=== PATIENT | female | born 1965 | race Caucasian/White ===

== ENCOUNTER 2023-10-15 16:20 | Outpatient (REF) | payer OTHER, SELFPAY ==
[2023-10-15 16:40] LABS: Ammonia 213 umol/L (11-32)
== END 2023-10-15 16:21 | disposition home or self-care (01) ==
LOC: LAB 16:20
PROVIDERS: PCP Family Medicine; Visit Provider Family Medicine
DX: K76.82 Hepatic encephalopathy (principal)
CPT/HCPCS: 36415; 82140

== ENCOUNTER 2023-10-15 21:44 | Inpatient (IN) | payer OTHER, SELFPAY ==
[2023-10-15 21:49] VITALS: BP 110/0; PULSE 106; PULSE 109; TEMP 35.6; BMI 26.6
--- NOTE | 2023-10-15 21:49 | ECG_ITS ---
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
--- NOTE | 2023-10-15 22:04 | ED_ITS ---
HPI - Altered Mental Status General Chief Complaint: Altered Mental Status Stated Complaint: UNRESPONSIVE Time Seen by Provider: 10/15/23 21:48 History of Present Illness HPI narrative: alcoholic cirrhosis and hepatic encephalopathy with elevated ammonia level. Discharged from [facility] last week and admitted to group home. Per she was receiving 40gm lactulose tid at hospital. States dose was decreased to 12gm bid at home. Patient lethargic all day per group home personnel and unresponsive tonight. History of Hypotension that is treated with midodrine. Squad found BP 80 systolic patient was on liver transplant list but reportedly not able to remain compliant and not drink. She is jaundiced. She arrives in no resp distress and responsive to painful stimuli DNRCCA no intubation per her Related Data Home Medications ?Medication ?Instructions ?Recorded ?Confirmed folic acid 1 mg tablet 1 mg PO DAILY 10/15/23 10/15/23 lactulose 10 gram/15 mL oral 30 g PO BID 10/15/23 10/15/23 solution (Constulose) midodrine 10 mg tablet 10 mg PO TID 10/15/23 10/15/23 multivitamin 1 tab PO DAILY 10/15/23 10/15/23 pantoprazole 40 mg tablet,delayed 40 mg PO DAILY 10/15/23 10/16/23 release rifaximin 550 mg tablet (Xifaxan) 550 mg PO BID 10/15/23 10/15/23 sodium bicarbonate 650 mg tablet 1,300 mg PO TID 10/15/23 10/16/23 Allergies Allergy/AdvReac Type Severity Reaction Status Date / Time tizanidine [From Zanaflex] Allergy Unknown Verified 10/15/23 22:41 Review of Systems ROS Status of ROS unobtainable due to mental status [facility] Medical History (Updated 10/16/23 @ 19:31 by Mihir Hall MD) Low platelet count ?D69.6 - Thrombocytopenia, unspecified (ICD-10) DNI (do not intubate) ?Z78.9 - Other specified health status (ICD-10) Pancreatitis ?K85.90 - Acute pancreatitis without necrosis or infection, unspecified (ICD- 10) Former cigarette smoker ?Z87.891 - Personal history of nicotine dependence (ICD-10) Alcohol abuse ?F10.10 - Alcohol abuse, uncomplicated (ICD-10) Atypical ductal hyperplasia of right breast ?N60.91 - Unspecified benign mammary dysplasia of right breast (ICD-10) Thrombocytopenia ?D69.6 - Thrombocytopenia, unspecified (ICD-10) Jaundice ?R17 - Unspecified jaundice (ICD-10) Hyponatremia ?E87.1 - Hypo-osmolality and hyponatremia (ICD-10) Hypotension ?I95.9 - Hypotension, unspecified (ICD-10) Hepatic fibrosis ?K74.00 - Hepatic fibrosis, unspecified (ICD-10) Lumbar pain ?M54.50 - Low back pain, unspecified (ICD-10) Cervical cancer ?C53.9 - Malignant neoplasm of cervix uteri, unspecified (ICD-10) Cirrhosis of liver with ascites ?K74.60 - Unspecified cirrhosis of liver (ICD-10) ?R18.8 - Other ascites (ICD-10) GERD (gastroesophageal reflux disease) ?K21.9 - Gastro-esophageal reflux disease without esophagitis (ICD-10) Hepatic encephalopathy ?K76.82 - Hepatic encephalopathy (ICD-10) Surgical History History of tonsillectomy ?Z90.89 - Acquired absence of other organs (ICD-10) History of hysterectomy ?Z90.710 - Acquired absence of both cervix and uterus (ICD-10) History of adenoidectomy ?Z90.89 - Acquired absence of other organs (ICD-10) Exam Constitutional Vital Signs, click to edit/add: Last Vital Signs Temp 97.8 F 10/16/23 11:33 Pulse 112 H 10/16/23 19:21 Resp 20 10/16/23 19:21 BP 111/72 10/16/23 19:21 Pulse Ox 100 10/16/23 19:21 O2 Del Method Room Air 10/16/23 19:21 Common normals: no apparent distress Other: deep jaundice color. responsive to painful stimuli HENMT Common normals: normocephalic and head/scalp atraumatic Eye Common normals: PERRL Visual velez: other (scleral icterus) Respiratory Common normals: normal respiratory effort, no retractions, no use of accessory muscles and clear to auscultation bilaterally Cardio Common normals: regular rate, regular rhythm and S1 normal heart sound GI Other: distended Extremity Common normals: normal to inspection Neuro Other: responsive to pain Course Vital Signs Vital signs: Vital Signs Temperature 96.1 F L 10/15/23 21:49 Pulse Rate 109 H 10/15/23 21:49 Respiratory Rate 17 10/15/23 21:49 Blood Pressure 110/0 L 10/15/23 21:49 Oxygen Delivery Method Room Air 10/15/23 21:49 Temperature 97.8 F 10/16/23 11:33 Pulse Rate 112 H 10/16/23 19:21 Respiratory Rate 20 10/16/23 19:21 Blood Pressure 111/72 10/16/23 19:21 Pulse Oximetry 100 10/16/23 19:21 Oxygen Delivery Method Room Air 10/16/23 19:21 MDM - Altered Mental Status MDM Narrative Medical decision making narrative: patient with history of hepatic encephalopathy and alcohol cirrhosis/ascites. Per her she was receiving 40gm lactulose at the hospital tid and received less at the group home. she is also on Xifaxin and takes midodrine for hypotension. states she was on liver transplant list but she was non compliant and continued to drink. she is now DNRCCA. no intubation. She arrived responsive to painful stimuli. Her BP improved with IV fluids. UA noninfected and cxray clear. neg troponin and no acute EKG finding. ammonia level is elevated but decreased from what is was earlier today. discussed plan to admit with hospitalist to treat her hyperammonemia with lactulose rectally as she is not able to take it PO. clinically at this point she does appear stable. Labs also reveal Hypothyroidism that is new and has not been treated Lab Data Labs: Lab Results 10/15/23 10/15/23 Range/Units 22:06 22:13 WBC 10.3 (4.0-11.0) 10^3/uL RBC 2.77 L (4.20-5.40) 10^6/uL Hgb 9.0 L (12.0-16.0) g/dL Hct 27.3 L (36.0-48.0) % MCV 98.6 (81.0-99.0) fL MCH 32.5 (26.7-34.0) pg MCHC 33.0 (29.9-35.2) g/dL RDW 18.0 H (11.0-15.0) % Plt Count 45 L (150-450) 10^3/uL MPV 13.0 (9.5-13.5) fL Neut % (Auto) 73.0 (43.0-75.0) % Lymph % (Auto) 9.6 L (20.5-60.0) % [place] % (Auto) 14.1 H (1.7-12.0) % Eos % (Auto) 1.5 (0.9-7.0) % Baso % (Auto) 0.3 (0.2-2.0) % Neut # (Auto) 7.6 H (1.4-6.5) 10^3/uL Lymph # (Auto) 1.0 L (1.2-3.8) 10^3/uL [place] # (Auto) 1.5 H (0.3-0.8) 10^3/uL Eos # (Auto) 0.2 (0.0-0.7) 10^3/uL Baso # (Auto) 0.0 (0.0-0.1) 10^3/uL Abs Immat Gran (auto) 0.15 H (0.00-0.03) 10^3/uL Imm/Tot Granulo (auto) 1.5 H (0.0-0.5) % PT 18.5 H (9.0-11.6) sec INR 1.86 Sodium 130 L (136-145) mmol/L Potassium 3.5 (3.5-5.1) mmol/L Chloride 103 (98-107) mmol/L Carbon Dioxide 15.4 L (21.0-32.0) mmol/L Anion Gap 15.1 BUN 19.0 H (7.0-18.0) mg/dL Creatinine 1.22 H (0.55-1.02) mg/dL Est GFR ( Amer) 55 L (>=60) Est GFR (Non-Af Amer) 45 L (>=60) BUN/Creatinine Ratio 15.6 Glucose 126 H (74-106) mg/dL Calcium 8.6 (8.5-10.1) mg/dL Total Bilirubin 12.6 H (0.2-1.0) mg/dL AST 62 H (15-37) U/L ALT 35 (14-59) U/L Alkaline Phosphatase 138 H (46-116) U/L Ammonia 163 H* (11-32) umol/L Troponin I High Sens 5.8 (4.0-51.3) pg/mL Total Protein 5.7 L (6.4-8.2) g/dL Albumin 1.9 L (3.4-5.0) g/dL Globulin 3.8 g/dL Albumin/Globulin Ratio 0.5 TSH 8.595 H (0.358-3.740) uIU/mL Free T4 1.33 (0.76-1.46) ng/dL Urine Color Dk. orange (YELLOW) Urine Clarity Clear (CLEAR) Urine pH 6.0 (5.0-9.0) Ur Specific [place] 1.015 (1.005-1.025) Urine Protein Negative (NEG/TRACE) mg/dL Urine Glucose (UA) Negative (NEGATIVE) mg/dL Urine Ketones Negative (NEGATIVE) mg/dL Urine Occult Blood Negative (NEGATIVE) Urine Nitrite Negative (NEGATIVE) Urine Bilirubin Large A (NEGATIVE) Urine Urobilinogen 0.2 (0.2-1.0) EU/dL Ur Leukocyte Esterase Negative (NEGATIVE) Critical Care Time Critical Care Time Total Critical Care Time: 45 Discharge Plan Discharge Chief Complaint: Altered Mental Status Clinical Impression: Altered mental status, Encephalopathy, hepatic, Hypothyroidism Patient Disposition: Admitted As Inpatient Condition: Serious Discharge Date/Time: 10/16/23 00:18
[2023-10-15 22:22] LABS: Basophils Percent Auto 0.3 % (0.2-2.0); Eosinophils Absolute Auto 0.2 10^3/uL (0.0-0.7); Eosinophils Percent Auto 1.5 % (0.9-7.0); Hematocrit 27.3 % (36.0-48.0); Immature Granulocytes Abs Auto 0.15 10^3/uL (0.00-0.03); Immature Granulocytes Pct Auto 1.5 % (0.0-0.5); Lymphocytes Percent Auto 9.6 % (20.5-60.0); Mean Corpuscular Hemoglobin 32.5 pg (26.7-34.0); Mean Corpuscular Volume 98.6 fL (81.0-99.0); Monocytes Absolute Auto 1.5 10^3/uL (0.3-0.8); Monocytes Percent Auto 14.1 % (1.7-12.0); Neutrophils Absolute Auto 7.6 10^3/uL (1.4-6.5); Platelet Count 45 10^3/uL (150-450); Red Blood Count 2.77 10^6/uL (4.20-5.40); White Blood Count 10.3 10^3/uL (4.0-11.0)
--- NOTE | 2023-10-15 22:23 | PC.NURSE ---
Patient keeping her eyes shut and just yells out with painful stimuli, does not answer with verbal response.
[2023-10-15 22:24] LABS: Bilirubin Urine LARGE (NEGATIVE); Blood Urine NEGATIVE (NEGATIVE); Clarity Urine CLEAR (CLEAR); Color Urine DK. ORANGE (YELLOW); Glucose Urine UA NEGATIVE (NEGATIVE); Ketones Urine NEGATIVE (NEGATIVE); Leukocyte Esterase Urine NEGATIVE (NEGATIVE); Nitrite Urine NEGATIVE (NEGATIVE); Protein Urine NEGATIVE (NEG/TRACE); Specific Gravity Urine 1.015 (1.005-1.025); Urobilinogen Urine 0.2 EU/dL (0.2-1.0)
[2023-10-15 22:25] LABS: Urine Microscopic Indicated NO
[2023-10-15 22:39] LABS: Alanine Aminotransferase 35 U/L (14-59); Albumin Globulin Ratio 0.5; Albumin Level 1.9 g/dL (3.4-5.0); Alkaline Phosphatase 138 U/L (46-116); Anion Gap 15.1; Aspartate Amino Transferase 62 U/L (15-37); BUN Creatinine Ratio 15.6; Bilirubin Total 12.6 mg/dL (0.2-1.0); Calcium 8.6 mg/dL (8.5-10.1); Carbon Dioxide 15.4 mmol/L (21.0-32.0); Chloride 103 mmol/L (98-107); Estimated GFR (African America 55 (>=60); Estimated GFR (Non-African Ame 45 (>=60); Globulin 3.8 g/dL; Glucose 126 mg/dL (74-106); Potassium 3.5 mmol/L (3.5-5.1); Sodium 130 mmol/L (136-145); Total Protein 5.7 g/dL (6.4-8.2)
[2023-10-15 22:41] LABS: Ammonia 163 umol/L (11-32)
[2023-10-15 22:42] LABS: Free T4 1.33 ng/dL (0.76-1.46)
[2023-10-15 22:47] LABS: Thyroid Stimulating Hormone 8.595 uIU/mL (0.358-3.740)
--- NOTE | 2023-10-15 22:53 | XR_ITS ---
The [address] [address] Patient Name: CELENA NOEL MRN: [id number] date: 1965 Sex: F Assigned Patient Location: ER Current Patient Location: ER Accession/Order Number: [id number] Exam Date: 10/15/2023 22:59 Report Date: 10/15/2023 23:18 At the request of: JAIMEE SMITH Procedure: XR chest 1V XR chest 1V 10/15/2023 9:59 PM CDT: History: altered mental status Comparison: None. Technique: 1 view chest Findings: The cardiomediastinal silhouette is normal. The lungs are clear without infiltrate, effusion, or pneumothorax. The bones are intact. XR/XR chest 1V Impression: No acute cardiopulmonary process. Electronically authenticated by: VALENTINA OSBORN Date: 10/15/2023 23:18
[2023-10-15 22:56] VITALS: BP 114/76; PULSE 105; O2SAT 100
[2023-10-15 23:11] LABS: Troponin I High Sensitivity 5.8 pg/mL (4.0-51.3)
[2023-10-15] MEDS: MORPHINE SULFATE 2 MG/ML SYRINGE IV (23:13)
[2023-10-15 23:46] VITALS: BP 90/61; PULSE 103; TEMP 37.4; O2SAT 99
[2023-10-15 23:49] VITALS: PULSE 106
[2023-10-16] VITALS (18 sets, daily range): BP systolic 84–122; BP diastolic 50–82; PULSE 100–115; TEMP 36.4–37.4; O2SAT 96–100; BMI 22.8
[2023-10-16 00:03] LABS: INR 1.86; Prothrombin Time 18.5 sec (9.0-11.6)
[2023-10-16] MEDS: SODIUM CHLORIDE 0.9% IRRIG SOLUTION 1,000 ML BOTTLE 700 ML IRR ×2 (02:38→06:57)
[2023-10-16] MEDS: LACTULOSE 10 GM/15 ML (237ML) SOLUTION 200 GM PR ×2 (02:38→06:57)
[2023-10-16] MEDS: 0.9 % SODIUM CHLORIDE 1,000 ML 100 ML IV ×3 (02:40→18:15)
--- NOTE | 2023-10-16 04:17 | PC.NURSE ---
was placed in ER not by this RN.
[2023-10-16 06:49] LABS: Hematocrit 27.7 % (36.0-48.0); Hemoglobin 9.1 g/dL (12.0-16.0); Mean Corpuscular HGB Conc 32.9 g/dL (29.9-35.2); Mean Corpuscular Hemoglobin 32.5 pg (26.7-34.0); Mean Corpuscular Volume 98.9 fL (81.0-99.0); Mean Platelet Volume 12.9 fL (9.5-13.5); Platelet Count 46 10^3/uL (150-450); Red Cell Distribution Width 17.9 % (11.0-15.0); White Blood Count 10.7 10^3/uL (4.0-11.0)
[2023-10-16 07:18] LABS: Ammonia 61 umol/L (11-32)
[2023-10-16 07:45] LABS: Band Neutrophils Absolute 0.7 10^3/uL (0.0-0.3); Segmented Neut Absolute Manual 8.34 10^3/uL (1.4-6.5)
[2023-10-16 07:46] LABS: Anisocytosis 1+; Burr Cells 1+; Lymphocytes Absolute Manual 0.85 10^3/uL (1.20-3.80); Macrocytosis 1+; Monocytes Absolute Manual 0.64 10^3/uL (0.30-0.80); Ovalocytes 1+; Poikilocytosis 2+
[2023-10-16] MEDS: PANTOPRAZOLE SODIUM 40 MG VIAL IV (08:32)
--- NOTE | 2023-10-16 09:11 | PM.HP ---
HPI H&P: HPI History of Present Illness Chief complaint: UNRESPONSIVE Narrative: Patient is a 58 y.o female with history of alcoholic cirrhosis, hepatic encephalopathy, hypotension, GERD, who presented to the ER last night with altered mental status, Jaundice and abdominal pain. I spoke with the this morning and she was recently hospitalized in [facility] and [facility]. There was some confusion on lactulose dose since her hospital discharge and patient became less responsive, more lethargic and could not take oral medications. Patient has been seeing Dr. Haddad (GI) locally and also Dr. Porter at [facility]. She was previously on Liver transplant list. Patient's MELD score is 28. Her and family wishes are to continue with care as much as she can. I called and spoke with Dr. Haddad's college who suggested transfer to [facility]. I have initiated transfer to [facility]. Patient is able to take laculose suppositories only. She will not tell me her name and is not oriented. She does open her eyes in responds to voice. Lab findings: elevated bilirubin, ammonia, AST, low platelets, INR 1.89, elevated PTT Opioid HPI Opioid Management Most Recent Pain and Opioid Data: Last Pain Assessment 10/16/23 14:00 Last ORT Total Score 3 10/16/23 00:32 Last ORT Risk Category Low Risk 10/16/23 00:32 Review of Systems ROS Status of ROS unobtainable due to medical condition [facility] Medical History (Updated 10/16/23 @ 14:54 by Concepción Nick DO) Low platelet count ?D69.6 - Thrombocytopenia, unspecified (ICD-10) DNI (do not intubate) ?Z78.9 - Other specified health status (ICD-10) Pancreatitis ?K85.90 - Acute pancreatitis without necrosis or infection, unspecified (ICD-10) Former cigarette smoker ?Z87.891 - Personal history of nicotine dependence (ICD-10) Alcohol abuse ?F10.10 - Alcohol abuse, uncomplicated (ICD-10) Atypical ductal hyperplasia of right breast ?N60.91 - Unspecified benign mammary dysplasia of right breast (ICD-10) Thrombocytopenia ?D69.6 - Thrombocytopenia, unspecified (ICD-10) Jaundice ?R17 - Unspecified jaundice (ICD-10) Hyponatremia ?E87.1 - Hypo-osmolality and hyponatremia (ICD-10) Hypotension ?I95.9 - Hypotension, unspecified (ICD-10) Hepatic fibrosis ?K74.00 - Hepatic fibrosis, unspecified (ICD-10) Lumbar pain ?M54.50 - Low back pain, unspecified (ICD-10) Cervical cancer ?C53.9 - Malignant neoplasm of cervix uteri, unspecified (ICD-10) Cirrhosis of liver with ascites ?K74.60 - Unspecified cirrhosis of liver (ICD-10) ?R18.8 - Other ascites (ICD-10) GERD (gastroesophageal reflux disease) ?K21.9 - Gastro-esophageal reflux disease without esophagitis (ICD-10) Hepatic encephalopathy ?K76.82 - Hepatic encephalopathy (ICD-10) Surgical History History of tonsillectomy ?Z90.89 - Acquired absence of other organs (ICD-10) History of hysterectomy ?Z90.710 - Acquired absence of both cervix and uterus (ICD-10) History of adenoidectomy ?Z90.89 - Acquired absence of other organs (ICD-10) Meds Home Medications and Allergies Home Medications ?Medication ?Instructions ?Recorded ?Confirmed ?Type folic acid 1 mg tablet 1 mg PO DAILY 10/15/23 10/15/23 History lactulose 10 gram/15 mL oral 30 g PO BID 10/15/23 10/15/23 History solution (Constulose) midodrine 10 mg tablet 10 mg PO TID 10/15/23 10/15/23 History multivitamin 1 tab PO DAILY 10/15/23 10/15/23 History pantoprazole 40 mg tablet,delayed 40 mg PO DAILY 10/15/23 10/16/23 History release rifaximin 550 mg tablet (Xifaxan) 550 mg PO BID 10/15/23 10/15/23 History sodium bicarbonate 650 mg tablet 1,300 mg PO TID 10/15/23 10/16/23 History Allergies Allergy/AdvReac Type Severity Reaction Status Date / Time tizanidine [From Zanaflex] Allergy Unknown Verified 10/15/23 22:41 Exam Narrative Exam Narrative: General: Patient is alert but not oriented to person, place or time Skin: jaundice with scleral icterus Head: atraumatic, acephalic Eyes: scleral icterus Ears: normal gross auditory acuity Heart: Normal rate and rhythm, no murmurs/rubs/gallops Lungs: no audible wheezes, crackles and normal breath sounds all lung velez Abdomen: distension, diffuse pain, ascites Musculoskeletal: no swelling bilateral lower extremities Constitutional Vital Signs, click to edit/add: Last Vital Signs Temp 97.6 F 10/16/23 06:00 Pulse 102 H 10/16/23 08:00 Resp 18 10/16/23 06:00 BP 96/50 10/16/23 06:00 Pulse Ox 99 10/16/23 06:00 O2 Del Method Room Air 10/16/23 08:57 Results Labs Labs: Short CBC 10/15/23 10/16/23 Range/Units 22:06 06:35 WBC 10.3 10.7 (4.0-11.0) 10^3/uL Hgb 9.0 L 9.1 L (12.0-16.0) g/dL Hct 27.3 L 27.7 L (36.0-48.0) % Plt Count 45 L 46 L (150-450) 10^3/uL BMP 10/15/23 22:06 Sodium 130 L Potassium 3.5 Chloride 103 Carbon Dioxide 15.4 L BUN 19.0 H Creatinine 1.22 H Glucose 126 H Calcium 8.6 Liver Function 10/15/23 Range/Units 22:06 Total Bilirubin 12.6 H (0.2-1.0) mg/dL AST 62 H (15-37) U/L ALT 35 (14-59) U/L Alkaline Phosphatase 138 H (46-116) U/L Albumin 1.9 L (3.4-5.0) g/dL Urine 10/15/23 Range/Units 22:13 Urine Color Dk. orange (YELLOW) Urine Clarity Clear (CLEAR) Urine pH 6.0 (5.0-9.0) Ur Specific [place] 1.015 (1.005-1.025) Urine Protein Negative (NEG/TRACE) mg/dL Urine Glucose (UA) Negative (NEGATIVE) mg/dL Assessment and Plan Assessment and Plan (1) Encephalopathy, hepatic: (2) Cirrhosis of liver with ascites: Qualifiers: Hepatic cirrhosis type: alcoholic cirrhosis Qualified Code(s): K70.31 - Alcoholic cirrhosis of liver with ascites (3) Thrombocytopenia: (4) Jaundice: (5) Hyponatremia: (6) Hypotension: Qualifiers: Hypotension type: unspecified hypotension type Qualified Code(s): I95.9 - Hypotension, unspecified (7) Hepatorenal failure: Plan will continue with lactulose enemas as patient cannot take PO. Ammonia level was 216, down to 61, MELD score is 28. Patient needs a higher level of care than here, hepatology and possible liver transplant. I have initiated transfer to [facility], hopeful for bed assignment soon. I have discussed the severity of her disease and her mortality risk is high and patient's liver failure is decompensating fast. I have discussed transfer with as well as option for hospice and he wishes to preceed with transfer. Continue with pain control as needed, IVF. Patient is a DNRCCA Urinary Catheter Management Urinary Catheter Management 2-way Urethral: Cath placed during this visit: yes Urethral indwelling: Yes Reason for continuing: prolonged immobilization Insertion date: 10/15/23 Insertion time: 22:15
[2023-10-16] MEDS: MIDODRINE HCL 5 MG TABLET 10 MG PO (16:36)
[2023-10-16] MEDS: FENTANYL CITRATE/PF 100 MCG/2 ML VIAL 25 MCG IV (16:37)
--- NOTE | 2023-10-16 17:32 | PC.NURSE ---
pts notified of room number and transfer to [facility], pending transportation arrangements. pts stated he will notify pts daughter
--- NOTE | 2023-10-17 07:18 | PM.DS1 ---
DS: Providers Provider Date of admission: 10/16/23 00:21 Primary care physician: VALENTINA POWELL Admitting clinician: Vianney Arevalo Consults: 10/16/23 Consult to Dietitian Routine Reason for consultation: malnutrition score 10/16/23 00:00 Consult to Pharmacy Routine Consulting Provider: Vianney Arevalo Reason for consultation: Lactulose enema q4h until ammonia level within nl limits or taking PO Has provider been notified: No Attending physician on discharge: Concepción Nick DS: Diagnosis Discharge Diagnosis (1) Encephalopathy, hepatic: (2) Cirrhosis of liver with ascites: Qualifiers: Hepatic cirrhosis type: alcoholic cirrhosis Qualified Code(s): K70.31 - Alcoholic cirrhosis of liver with ascites (3) Thrombocytopenia: (4) Jaundice: (5) Hyponatremia: (6) Hypotension: Qualifiers: Hypotension type: unspecified hypotension type Qualified Code(s): I95.9 - Hypotension, unspecified (7) Hepatorenal failure: DS: Summary Hospital Course Hospital Course: Please see H&P for full details. Patient was accepted at [facility] and was transferred there last night for higher level of care, and to transplant center. The case was discussed with Accepting nurse at [facility]. I also discussed transfer with and patient at bedside and they agree with plan. Status at Discharge Overall status at discharge: patient is not back to baseline Time Spent with Patient Time attestation: Total time spent providing and/or coordinating discharge services: Time spent: greater than 30 minutes Exam Narrative Exam Narrative: discharge exam is unchanged from admitting H&P dated 10/16/23 Constitutional Vital Signs, click to edit/add: Last Vital Signs Temp 97.8 F 10/16/23 11:33 Pulse 114 H 10/16/23 20:07 Resp 20 10/16/23 19:21 BP 111/72 10/16/23 19:21 Pulse Ox 100 10/16/23 19:21 O2 Del Method Room Air 10/16/23 19:21 DS: Data Data Completed and Pending Labs on day of discharge: Labs from last 24 hours 10/16/23 06:35 WBC 10.7 RBC 2.80 L Hgb 9.1 L Hct 27.7 L MCV 98.9 MCH 32.5 MCHC 32.9 RDW 17.9 H Plt Count 46 L MPV 12.9 Seg Neuts % (Manual) 78.0 Band Neutrophils % 7.0 H Lymphocytes % (Manual) 8.0 L Monocytes % (Manual) 6.0 Eosinophils % (Manual) 1.0 Basophils % (Manual) 0.0 L Neutrophils # (Manual) 8.34 H Band Neutrophils # 0.7 H Lymphocytes # (Manual) 0.85 L Monocytes # (Manual) 0.64 Eosinophils # (Manual) 0.10 Basophils # (Manual) 0.00 Poikilocytosis 2+ Anisocytosis 1+ Macrocytosis 1+ Ovalocytes 1+ [place] Cells 1+ Ammonia 61 H* Discharge Plan Discharge Disposition: [facility] Condition: Serious Discharge Date/Time: 10/16/23 20:45 Discharge location: [facility]
== END 2023-10-16 20:45 | disposition short-term general hospital (02) | DRG 441 ==
LOC: ER 10-16 → MS 10-16 00:22
PROVIDERS: Registered Nurse; Admitting Provider Family Medicine; Emergency Provider Internal Medicine; PCP Internal Medicine; Visit Provider Family Medicine
DX: K76.82 Hepatic encephalopathy (principal); K76.7 Hepatorenal syndrome; E87.1 Hypo-osmolality and hyponatremia; K70.31 Alcoholic cirrhosis of liver with ascites; D69.6 Thrombocytopenia, unspecified; E03.9 Hypothyroidism, unspecified; I95.9 Hypotension, unspecified; Z66 Do not resuscitate; K21.9 Gastro-esophageal reflux disease without esophagitis; Z79.899 Other long term (current) drug therapy; Z88.8 Allergy status to other drugs, medicaments and biological substances; Z87.891 Personal history of nicotine dependence; Z85.41 Personal history of malignant neoplasm of cervix uteri
CPT/HCPCS: 36415; 51702; 71045; 80053; 81003; 82140; 84439; 84443; 84484; 85007; 85025; 85027; 85610; 93005; 96361; 96374; 96375; 99285; J2270; J3010